=== PATIENT | male | born 1960 | race Caucasian/White ===

== ENCOUNTER 2019-04-04 12:42 | Outpatient (CLI) | payer BC ==
--- NOTE | 2019-04-04 14:17 | CT ---
EXAM: CT of the chest with contrast CT of the abdomen and pelvis with contrast HISTORY: Rectal cancer COMPARISON: None TECHNIQUE: 1. Multiple contiguous axial images were obtained in a CT the chest with contrast. Coronal and sagitt al reformats were performed. 2. Multiple contiguous axial images were obtained and a CT of the abdomen and pelvis with contrast. C oronal and sagittal reformats were performed. FINDINGS: CT CHEST: HEART: Normal in size without focal cardiac abnormality MEDIASTINUM: No hilar or mediastinal lymphadenopathy. LUNGS: No focal infiltrates, nodules, or masses. PLEURAL SPACE: No pneumothorax or pleural effusion. CHEST WALL SOFT TISSUES: Unremarkable CT ABDOMEN/PELVIS: ABDOMEN: LIVER: within normal limits. BILE DUCTS: Normal caliber. GALLBLADDER: No calcified gallstones. Normal caliber wall. PANCREAS: within normal limits. SPLEEN: within normal limits. ADRENALS: 1.6 cm left adrenal mass. Normal right adrenal gland. KIDNEYS: within normal limits. PELVIS: REPRODUCTIVE ORGANS: No pelvic masses. No pelvic adenopathy. URETERS: within normal limits. BLADDER: within normal limits. PERITONEUM: No ascites or free air, no fluid collection. BOWEL: There is thickening of the wall of the low rectum. Scattered diverticula are seen in the sigmo id colon. MESENTERY AND RETROPERITONEUM: No enlarged mesenteric or retroperitoneal lymph nodes. VESSELS: Atherosclerotic calcifications. ABDOMINAL WALL: within normal limits. OSSEOUS STRUCTURES: No suspicious osseous lesions identified. IMPRESSION: 1. Thickening of the wall of the lower rectum likely represents the patient's known rectal malignancy . 2. Nonspecific left adrenal nodule/mass
== END 2019-04-04 12:43 | disposition home or self-care (01) ==
LOC: BICCT 12:42
PROVIDERS: ATTEND Internal Medicine Gastroenterology
DX: C20 Malignant neoplasm of rectum (principal)
CPT/HCPCS: 71260; 74177

== ENCOUNTER 2019-04-14 07:45 | Outpatient (CLI) | payer BC ==
--- NOTE | 2019-04-14 11:14 | PET ---
Radionucleotide PET scan with CT attenuation correction HISTORY: Rectal cancer. Initial staging. FINDINGS: Physiologic uptake of radiotracer throughout the enteric system and along each urinary trac t. No abnormal uptake is evident within the liver. Maximum uptake associated with the mass at the lower rectum is 19.1 SUV. At the left adrenal gland, the small soft tissue density nodule is again seen. Maximum SUV 2.6 (maxim um SUV associated with the right adrenal gland is 2.4). On the nondiagnostic CT attenuation correction images, Hounsfield units associated with the left adrenal nodule average 20. There is prominent calcification throughout the arterial structures. Other findings are as detailed o n recent diagnostic CT exam. IMPRESSION: No metastatic disease of the liver. The left adrenal gland shows indeterminant characteristics for documentation as an adrenal adenoma. S cintigraphic evaluation is borderline for hypermetabolic activity, although not that different from the right adrenal gland, and Hounsfield unit measurements are borderline for adenoma density. Rectal carcinoma metastasis to the left adrenal gland would be uncommon. For immediate further diagnostic evaluation of the left adrenal nodule, dedicated CT exam, without an d with IV contrast to evaluate for enhancement characteristics, could be performed.
== END 2019-04-14 07:46 | disposition home or self-care (01) ==
LOC: PET 07:45
PROVIDERS: ATTEND Internal Medicine Hematology & Oncology
DX: C20 Malignant neoplasm of rectum (principal)
CPT/HCPCS: 78815; A9552

== ENCOUNTER 2019-04-20 09:47 | Outpatient (CLI) | payer BC ==
--- NOTE | 2019-04-20 11:47 | MRI ---
EXAM: MRI of the pelvis without and with contrast HISTORY: Rectal cancer staging COMPARISON: None TECHNIQUE: Multiplanar multisequence MR images were obtained of the pelvis without and with IV contra st. FINDINGS: There is a mass involving the rectum measuring 5.2 cm in length. The mass is heterogeneous in appeara nce and appears full-thickness. Abnormal high T2 signal is seen in the rectal wall along the left aspect of the rectum obscuring the muscle and serosa in this location. Invasion of the mesorectal fat: Yes ; Distance of mass from the anal verge: 1.1 cm Closest margin to the mesorectal fascia: less than 1 mm. This appears to abut the mesorectal fascia i n the left low pelvis. Involvement of adjacent organs: None Pelvic lymph nodes: 3-4 small right mesorectal fat lymph nodes measuring up to 7 mm in size. Osseous structures: No marrow signal abnormality Other visualized intrapelvic structures: Unremarkable IMPRESSION: Rectal cancer as above. Staging: T stage: TT IIIb N stage: N N Ib M stage: Mx
== END 2019-04-20 09:48 | disposition home or self-care (01) ==
LOC: TBSIIMAG 09:47
PROVIDERS: ATTEND Internal Medicine Hematology & Oncology
DX: C20 Malignant neoplasm of rectum (principal); D72.828 Other elevated white blood cell count
CPT/HCPCS: 72197

== ENCOUNTER 2019-07-18 11:35 | Outpatient (CLI) | payer BC ==
[2019-07-18 12:28] LABS: #Eosinphils 0.3 thou/uL (0.0-0.7); #Lymphocytes 1.1 thou/uL (1.20-3.40); #Monocytes 1.2 thou/uL (0.11-0.59); #Neutrophils 6.4 thou/uL (1.40-6.50); %Basophils 0.3 % (0.0-1.0); %Eosinophils 3.5 % (0.0-10.0); %Lymphocytes 11.7 % (21.0-51.0); %Monocytes 13.6 % (0.0-10.0); %Neutrophils 70.9 % (42.0-75.0); Hemoglobin 15.5 g/dL (14.0-18.0); Mean Corpuscular HGB CONC 34.2 g/dL (32.0-36.0); Mean Corpuscular Hemoglobin 36.3 pg (27.0-31.0); Mean Platelet Volume 7.7 fL (7.4-10.4); Platelet Count 271 thou/uL (130-400); RBC Distribution Width 13.5 % (11.5-14.5); Red Blood Cell (RBC) Count 4.27 mill/uL (4.70-6.10); White Blood Cell (WBC) Count 9.1 thou/uL (4.8-10.8)
[2019-07-18 12:42] LABS: Anion Gap 14 mmol/L (10-20); BUN (Urea Nitrogen) 15 mg/dL (8.4-25.7); Calc. Creatinine Clearance 0 mL/min (70-130); Calcium 9.9 mg/dL (7.8-10.44); Carbon Dioxide 21 mmol/L (22-29); Chloride 108 mmol/L (98-107); Estimated GFR-MDRD Greater than 90; Glucose 91 mg/dL (70-105); Sodium 139 mmol/L (136-145)
--- NOTE | 2019-07-20 14:28 | EKG ---
Test Reason : Blood Pressure : / mmHG Vent. Rate : 072 BPM Atrial Rate : 072 BPM P-R Int : 176 ms QRS Dur : 082 ms QT Int : 400 ms P-R-T Axes : 045 091 051 degrees QTc Int : 438 ms Normal sinus rhythm Rightward axis Cannot rule out Anterior infarct , age undetermined Abnormal ECG Confirmed by DIANE VICTOR ([id number]) on 07/20/2019 2:28:14 PM Referred By: CORY Confirmed By:DIANE VICTOR
== END 2019-07-18 11:36 | disposition home or self-care (01) ==
LOC: LABBT 11:35
PROVIDERS: ATTEND Specialist
DX: Z01.818 Encounter for other preprocedural examination (principal); C20 Malignant neoplasm of rectum
CPT/HCPCS: 36415; 80048; 80053; 82248; 82378; 83615; 84100; 84550; 85025; 93005; 93010

== ENCOUNTER 2019-07-19 07:51 | Day surgery (SDC) | payer BC ==
[2019-07-18 11:53] VITALS: BMI 28.4
[2019-07-19] MEDS ORDERED: Ketorolac Tromethamine 30 MG/ML VIAL ONE (08:19)
[2019-07-19] MEDS ORDERED: Acetaminophen 500 MG TAB ONE (08:19)
[2019-07-19] MEDS ORDERED: Bupivacaine 0.25% HCL 30 ML VIAL ONE (09:48)
[2019-07-19] MEDS ORDERED: Lidocaine 1% w/Epinephrine 1:100K 20 ML VIAL ONE (09:48)
[2019-07-19] MEDS ORDERED: Fentanyl 100 MCG/2 ML VIAL ONE (09:51)
[2019-07-19] MEDS ORDERED: Midazolam HCl 2 mg/2 ml Vial ONE (09:51)
--- NOTE | 2019-07-19 11:38 | RAD ---
Exam: Chest one view HISTORY:Status post Mediport placement Comparison: None FINDINGS: Cardiac silhouette: Normal Aorta: Unremarkable Pulmonary vessels: Normal Costophrenic angles: Clear Mediport: Right-sided Mediport catheter terminates over the cavoatrial junction. LUNGS: Patchy interstitial opacities. Pneumothorax: None. Limited evaluation of the right lung apex due to overlying oxygenation mass. Osseous abnormalities: None IMPRESSION: 1. Right-sided Mediport catheter terminating over the expected region of the caval atrial junction. N o pneumothorax.
[2019-07-19] MEDS ORDERED: Lidocaine 1% PF 5 ML VIAL ONE (12:26)
[2019-07-19] MEDS ORDERED: Succinylcholine Chloride 20 MG/ML 10 ml SYRINGE FS ONE (12:26)
[2019-07-19] MEDS ORDERED: PROPOFOL 200 MG/20 ML VIAL ONE (12:26)
[2019-07-19] MEDS ORDERED: Dexamethasone 20 MG/5 ML VIAL ONE (12:26)
[2019-07-19] MEDS ORDERED: Ondansetron PF 4 MG/2 ML Vial ONE (12:26)
[2019-07-19] MEDS ORDERED: PHENYLEPHRINE-NS 100 MCG/ML 10 ML SYRINGE ONE (12:26)
--- NOTE | 2019-07-20 11:58 | OP ---
DATE OF PROCEDURE: 07/19/2019 PREOPERATIVE DIAGNOSIS: Rectal cancer. POSTOPERATIVE DIAGNOSIS: Rectal cancer. PROCEDURES PERFORMED: Right subclavian standard size power compatible MediPort. ANESTHESIA: Total intravenous anesthesia with local using a mixture of 1% lidocaine with epinephrine as well as 0.25% Marcaine. INDICATIONS: The patient is a 58-year-old white male. He was recently diagnosed with rectal cancer. He was taken to the operating room at this time for MediPort placement for chemotherapy administration. DESCRIPTION OF OPERATION: Informed consent was obtained. The patient was taken to the operating room where total intravenous anesthesia was obtained with the patient in supine position. Periclavicular area was prepped with ChloraPrep and draped in sterile fashion. Local anesthetic was infiltrated and a large-gauge needle was passed under the clavicle in the subclavian vein. Guidewire was passed through the needle and fluoroscopically confirmed to enter the superior vena cava. Additional local anesthetic was infiltrated and transverse incision was created based on needle insertion site. A subcutaneous pocket was dissected inferiorly. Introducer dilator was passed over the guidewire under fluoroscopic guidance. The guidewire and dilator were removed, and the catheter was passed through the introducer. The tip of the catheter was positioned at the atriocaval junction and the catheter was trimmed to the appropriate length and secured to the locking hub of the MediPort. The port was then placed in the subcutaneous pocket where it was secured to the pectoral fascia with 2 interrupted sutures of 3-0 Prolene. The incision was then closed in layers with 3-0 and 4-0 Monocryl. Additional local anesthetic was infiltrated. The port was cannulated with a [place] needle and it aspirated blood freely and was flushed with heparinized saline. Dermabond was placed externally on the skin incision. There were no complications. Blood loss was negligible. The patient tolerated the procedure well and was taken to recovery room in stable condition. FINDINGS: I placed a right subclavian standard size port. The port size was selected secondary to his body habitus. Fluoroscopy was used throughout the procedure. There was no significant blood loss or any complications. The patient tolerated the procedure well, was taken to recovery room in stable condition. Job ID: [id number]
== END 2019-07-19 12:30 | disposition home or self-care (01) ==
LOC: SDC 07:51
PROVIDERS: ATTEND Specialist
PROC: 02HV33Z Insertion of Infusion Device into Superior Vena Cava, Percutaneous Approach (ICD-10-PCS; principal; 2019-07-19)
DX: C20 Malignant neoplasm of rectum (principal); I10 Essential (primary) hypertension; F10.20 Alcohol dependence, uncomplicated; F17.210 Nicotine dependence, cigarettes, uncomplicated; F32.9 Major depressive disorder, single episode, unspecified; G47.30 Sleep apnea, unspecified; Z88.2 Allergy status to sulfonamides; Z88.8 Allergy status to other drugs, medicaments and biological substances; Z79.899 Other long term (current) drug therapy
CPT/HCPCS: 71045; C1788; J0690; J1100; J1642; J1885; J2001; J2250; J2405; J2704; J3010; S0020

== ENCOUNTER 2021-02-25 08:05 | Outpatient (CLI) | payer BC ==
[2021-02-25] MEDS ORDERED: Iopamidol-370 76% 500 ML 1 ML ONE (10:53)
== END 2021-02-25 08:06 | disposition home or self-care (01) ==
LOC: BICCT 08:05
PROVIDERS: ATTEND Internal Medicine Hematology & Oncology
DX: C20 Malignant neoplasm of rectum (principal); D72.828 Other elevated white blood cell count; M85.88 Other specified disorders of bone density and structure, other site; Z98.890 Other specified postprocedural states; Z90.49 Acquired absence of other specified parts of digestive tract
CPT/HCPCS: 71260; 74177; Q9967

== ENCOUNTER 2021-05-16 11:45 | Outpatient (CLI) | payer BC | END 2021-05-16 11:46 | disposition home or self-care (01) | LOC: PET 11:45 | PROVIDERS: ATTEND Internal Medicine Hematology & Oncology | DX: C20 Malignant neoplasm of rectum (principal); I71.4 Abdominal aortic aneurysm, without rupture; Z98.890 Other specified postprocedural states | CPT/HCPCS: 78815; A9552 ==

== ENCOUNTER 2021-07-29 09:19 | Outpatient (CLI) | payer BC ==
[2021-07-29 10:59] LABS: #Basophils 0.1 10x3/uL (0.0-0.2); #Eosinphils 0.2 10x3/uL (0.0-0.5); #Neutrophils 5.8 10x3/uL (1.5-8.4); %Basophils 0.6 % (0.0-2.0); %Eosinophils 2.6 % (0.0-6.0); %Lymphocytes 15.9 % (18.0-47.0); %Monocytes 11.6 % (0.0-10.0); %Neutrophils 68.5 % (40.0-75.0); Hemoglobin 16.2 g/dL (13.5-17.5); Mean Corpuscular HGB CONC 35.1 g/dL (32.0-36.0); Mean Corpuscular Hemoglobin 33.8 pg (27.0-33.0); Mean Platelet Volume 11.6 fl (7.4-10.4); Platelet Count 233 10x3/uL (150-450); RBC Distribution Width 12.7 % (11.5-14.5); White Blood Cell (WBC) Count 8.5 10x3/uL (3.5-10.5)
[2021-07-29 11:25] LABS: Anion Gap 13 mmol/L (10-20); BUN (Urea Nitrogen) 19 mg/dL (8.4-25.7); Calc. Creatinine Clearance 0 mL/min (70-130); Calcium 9.5 mg/dL (7.8-10.44); Carbon Dioxide 21 mmol/L (22-29); Chloride 110 mmol/L (98-107); Glucose 87 mg/dL (70-105); Potassium 4.3 mmol/L (3.5-5.1); Sodium 140 mmol/L (136-145)
[2021-07-29 23:30] LABS: SARS-CoV-2 PCR by NAA Not Detected (NotDetected)
== END 2021-07-29 09:20 | disposition home or self-care (01) ==
LOC: LABBT 09:19
PROVIDERS: ATTEND Specialist
DX: Z01.818 Encounter for other preprocedural examination (principal); C20 Malignant neoplasm of rectum; E27.8 Other specified disorders of adrenal gland; Z20.822 Contact with and (suspected) exposure to COVID-19
CPT/HCPCS: 80048; 85025; 93005; 93010; U0003; U0005

== ENCOUNTER 2021-07-29 09:30 | Inpatient (IN) | payer BC ==
[2021-08-01] MEDS ORDERED: Ketorolac Tromethamine 30 MG/ML VIAL ONE (06:09)
[2021-08-01] MEDS ORDERED: ceFAZolin (BATCH) 2 GM/100 ML BAG ONE ×2 (06:09→07:58)
[2021-08-01] MEDS ORDERED: Acetaminophen 500 MG TAB ONE (06:09)
[2021-08-01] MEDS ORDERED: Lidocaine 1% MPF 2 ML VIAL ONE (06:10)
[2021-08-01] MEDS ORDERED: Phenylephrine 10 MG/ML VIAL ONE (06:44)
[2021-08-01] MEDS ORDERED: Ketamine 50 MG/ML (10ML VIAL) ONE (06:44)
[2021-08-01] MEDS ORDERED: Albumin 5% 250 ML ONE (06:44)
[2021-08-01] MEDS ORDERED: Fentanyl 250 MCG/5 ML VIAL ONE (06:44)
[2021-08-01] MEDS ORDERED: Lidocaine 1% (PF) 30 ML VIAL ONE (07:24)
[2021-08-01] MEDS ORDERED: SUGAMMADEX SODIUM 200 MG/2 ML VIAL ONE (07:24)
[2021-08-01] MEDS ORDERED: Midazolam HCl 2 mg/2 ml Vial ONE (07:43)
[2021-08-01] MEDS ORDERED: ePHEDrine 50 MG/ML VIAL ONE (08:30)
[2021-08-01] MEDS ORDERED: Rocuronium Bromide 10 MG/ML (10ML VIAL) ONE (08:30)
[2021-08-01] MEDS ORDERED: Ondansetron PF 4 MG/2 ML Vial ONE ×2 (08:30→11:54)
[2021-08-01] MEDS ORDERED: PROPOFOL 200 MG/20 ML VIAL ONE (08:30)
[2021-08-01] MEDS ORDERED: Dexamethasone 20 MG/5 ML VIAL ONE (08:30)
[2021-08-01] MEDS ORDERED: Vecuronium 10 MG VIAL ONE (08:30)
[2021-08-01] MEDS ORDERED: Lidocaine 1% PF 5 ML VIAL ONE (08:30)
[2021-08-01] MEDS ORDERED: Glycopyrrolate 0.2 MG/ML 5 ML SYRINGE ONE (08:30)
[2021-08-01] MEDS ORDERED: Lidocaine 1.5% w/Epi 1:200K 30 ML VIAL (Epid Use) ONE (08:30)
[2021-08-01] MEDS ORDERED: Nitroglycerin 50 MG/250 ML BOT 0 ML ONE (09:10)
[2021-08-01] MEDS ORDERED: Acetaminophen 325 MG TAB PO PRN (09:33)
[2021-08-01] MEDS ORDERED: Ondansetron PF 4 MG/2 ML Vial IVP PRN ×2 (09:45→11:32)
[2021-08-01] MEDS ORDERED: traMADol HCl 50 MG TAB PO PRN ×4 (09:45→15:00)
[2021-08-01] MEDS ORDERED: Naloxone HCl 0.4 mg/ml Vial IV PRN (09:45)
[2021-08-01] MEDS ORDERED: HYDROcodone/Acetaminophen 5/325 mg Tablet PO PRN (09:45)
[2021-08-01] MEDS ORDERED: diphenhydrAMINE 50 MG/ML VIAL IM PRN (09:45)
[2021-08-01] MEDS ORDERED: diphenhydrAMINE 50 MG/ML VIAL IVP PRN (09:45)
[2021-08-01] MEDS ORDERED: diphenhydrAMINE 25 MG CAP PO PRN (09:45)
[2021-08-01] MEDS ORDERED: Promethazine HCl 25 MG/ML VIAL IM PRN ×2 (09:45→11:32)
[2021-08-01] MEDS ORDERED: Naloxone HCl 0.4 mg/ml Vial IVP PRN (09:45)
[2021-08-01] MEDS ORDERED: Promethazine HCl 25 MG SUPP PR PRN (09:45)
[2021-08-01] MEDS ORDERED: Zolpidem Tartrate 5 MG TAB PO PRN (09:45)
[2021-08-01] MEDS ORDERED: Hydrocerin (Eucerin) Cream 120 gm Jar TOP PRN (09:45)
[2021-08-01] MEDS ORDERED: Bupivacaine 0.25% 10 ML VIAL EPIDURAL PRN (09:45)
[2021-08-01] MEDS ORDERED: Dexmedetomidine 200 MCG/2 ML VIAL ONE (11:01)
[2021-08-01] MEDS ORDERED: Bupivacaine 0.25% 10 ML VIAL ONE (11:02)
[2021-08-01] MEDS ORDERED: hydrALAZINE 20 MG/ML VIAL SLOW IVP PRN (11:32)
[2021-08-01] MEDS ORDERED: Fentanyl 100 MCG/2 ML VIAL ONE (11:45)
[2021-08-01] MEDS ORDERED: Bupivacaine 0.25% HCL 30 ML VIAL ONE (11:45)
[2021-08-01] MEDS ORDERED: Famotidine/PF 20 mg/2ml Vial SLOW IVP SCH (12:00)
[2021-08-01] MEDS: Ketorolac Tromethamine 30 MG/ML VIAL IVP SCH ×2 (12:00→18:32)
[2021-08-01] MEDS ORDERED: Citalopram 20 MG TAB PO SCH (12:00)
[2021-08-01] MEDS ORDERED: Famotidine 20 MG TAB PO SCH (12:00)
[2021-08-01] MEDS ORDERED: D5 1/2 NS w/20 mEq KCL 1,000 ML ONE (13:25)
[2021-08-01] MEDS: HYDROcodone/Acetaminophen 5/325 mg Tablet PO PRN (14:29)
[2021-08-01] MEDS: D5 1/2 NS w/20 mEq KCL 1,000 ML IV SCH ×2 (14:32→20:51)
[2021-08-01 14:35] VITALS: BMI 31.1
[2021-08-01] MEDS: ALPRAZolam 0.25 MG TAB PO PRN (15:48)
[2021-08-01] MEDS: Famotidine 20 MG TAB PO SCH (20:51)
[2021-08-01] MEDS: Famotidine/PF 20 mg/2ml Vial SLOW IVP SCH (20:51)
[2021-08-01] MEDS: fentaNYL Citrate/PF 500 MCG, Bupivacaine 0.75% 10 ML in Sodium Chloride 0.9% 80 ML EPIDURAL SCH (21:18)
[2021-08-02] MEDS: Ketorolac Tromethamine 30 MG/ML VIAL IVP SCH ×4 (00:11→17:32)
[2021-08-02] MEDS: D5 1/2 NS w/20 mEq KCL 1,000 ML IV SCH ×5 (05:22→21:27)
[2021-08-02 05:47] LABS: Anion Gap 11 mmol/L (10-20); BUN (Urea Nitrogen) 13 mg/dL (8.4-25.7); Calc. Creatinine Clearance 108 mL/min (70-130); Calcium 8.5 mg/dL (7.8-10.44); Carbon Dioxide 21 mmol/L (22-29); Chloride 110 mmol/L (98-107); Glucose 166 mg/dL (70-105); Potassium 4.1 mmol/L (3.5-5.1); Sodium 138 mmol/L (136-145)
[2021-08-02 05:52] LABS: Band 11 % (5-11); Hemoglobin 14.7 g/dL (14.0-18.0); Lymphocytes 6 % (21-51); MDiff Complete? YES; Mean Corpuscular HGB CONC 33.2 g/dL (32.0-36.0); Mean Platelet Volume 8.4 fL (7.4-10.4); Monocytes 4 % (0-10); Neutrophil 78 % (42-75); Platelet Count 190 thou/uL (130-400); RBC Distribution Width 11.6 % (11.5-14.5); Reactive Lymphocytes 1 % (0-10); White Blood Cell (WBC) Count 21.9 thou/uL (4.8-10.8)
[2021-08-02] MEDS ORDERED: HYDROcodone/Acetaminophen 7.5/325 mg Tablet PO PRN ×2 (08:57)
[2021-08-02] MEDS ORDERED: Enoxaparin Sodium 40 MG/0.4 ML SYRINGE SC SCH (09:00)
[2021-08-02] MEDS: Citalopram 20 MG TAB PO SCH (09:02)
[2021-08-02] MEDS: Lisinopril 20 MG TAB PO SCH (09:02)
[2021-08-02] MEDS: Famotidine 20 MG TAB PO SCH ×2 (09:02→20:33)
[2021-08-02] MEDS: Famotidine/PF 20 mg/2ml Vial SLOW IVP SCH ×2 (09:03→21:28)
[2021-08-02] MEDS: fentaNYL Citrate/PF 500 MCG, Bupivacaine 0.75% 10 ML in Sodium Chloride 0.9% 80 ML EPIDURAL SCH ×2 (09:04→20:34)
[2021-08-02] MEDS: ALPRAZolam 0.25 MG TAB PO PRN (11:35)
[2021-08-02] MEDS: HYDROcodone/Acetaminophen 5/325 mg Tablet PO PRN (20:33)
[2021-08-03] MEDS: Ketorolac Tromethamine 30 MG/ML VIAL IVP SCH ×4 (00:24→18:35)
[2021-08-03] MEDS: D5 1/2 NS w/20 mEq KCL 1,000 ML IV SCH ×4 (05:20→21:03)
[2021-08-03] MEDS: Citalopram 20 MG TAB PO SCH (09:25)
[2021-08-03] MEDS: Famotidine 20 MG TAB PO SCH ×2 (09:25→20:58)
[2021-08-03] MEDS: Lisinopril 20 MG TAB PO SCH (09:25)
[2021-08-03] MEDS: Famotidine/PF 20 mg/2ml Vial SLOW IVP SCH ×2 (09:27→21:03)
[2021-08-03] MEDS: ALPRAZolam 0.25 MG TAB PO PRN (18:39)
[2021-08-03] MEDS: Enoxaparin Sodium 40 MG/0.4 ML SYRINGE SC SCH (20:58)
[2021-08-04] MEDS: Ketorolac Tromethamine 30 MG/ML VIAL IVP SCH ×3 (00:01→12:16)
[2021-08-04] MEDS: D5 1/2 NS w/20 mEq KCL 1,000 ML IV SCH ×3 (05:29→18:19)
[2021-08-04] MEDS: Citalopram 20 MG TAB PO SCH (09:35)
[2021-08-04] MEDS: Famotidine 20 MG TAB PO SCH ×2 (09:35→20:43)
[2021-08-04] MEDS: Lisinopril 20 MG TAB PO SCH (09:36)
[2021-08-04] MEDS: Famotidine/PF 20 mg/2ml Vial SLOW IVP SCH (09:36)
[2021-08-04] MEDS ORDERED: Polyethylene Glycol 3350 17 GM Packet PO SCH (17:15)
[2021-08-04] MEDS: Enoxaparin Sodium 40 MG/0.4 ML SYRINGE SC SCH (20:43)
[2021-08-05] MEDS ORDERED: Polyethylene Glycol 3350 17 GM Packet PO SCH (09:00)
[2021-08-05 09:32] LABS: Mean Corpuscular HGB CONC 33.8 g/dL (32.0-36.0); Mean Corpuscular Hemoglobin 34.8 pg (27.0-31.0); Mean Platelet Volume 8.5 fL (7.4-10.4); Platelet Count 208 thou/uL (130-400); RBC Distribution Width 11.3 % (11.5-14.5); White Blood Cell (WBC) Count 11.2 thou/uL (4.8-10.8)
[2021-08-05] MEDS: Lisinopril 20 MG TAB PO SCH (09:42)
[2021-08-05] MEDS: Famotidine 20 MG TAB PO SCH (09:42)
[2021-08-05] MEDS: Citalopram 20 MG TAB PO SCH (09:42)
[2021-08-05 09:56] LABS: Anion Gap 13 mmol/L (10-20); BUN (Urea Nitrogen) 15 mg/dL (8.4-25.7); Calc. Creatinine Clearance 113 mL/min (70-130); Calcium 9.1 mg/dL (7.8-10.44); Carbon Dioxide 24 mmol/L (22-29); Chloride 106 mmol/L (98-107); Glucose 96 mg/dL (70-105); Potassium 3.9 mmol/L (3.5-5.1); Sodium 139 mmol/L (136-145)
[2021-08-05 10:13] LABS: Lymphocytes 10 % (21-51); MDiff Complete? YES; Monocytes 13 % (0-10); Neutrophil 74 % (42-75); Platelet Morphology Comment Appears Adequate; RBC Morphology Normal; Reactive Lymphocytes 3 % (0-10)
[2021-08-05 16:10] VITALS: BP 136/90; TEMP 97.9
== END 2021-08-05 18:05 | disposition home or self-care (01) | DRG 614 ==
LOC: SURG A 08-01 05:54
PROVIDERS: ADMIT Specialist; ATTEND Specialist
PROC: 0GT20ZZ Resection of Left Adrenal Gland, Open Approach (ICD-10-PCS; principal; 2021-08-01)
DX: C79.72 Secondary malignant neoplasm of left adrenal gland (principal); C20 Malignant neoplasm of rectum; K91.89 Other postprocedural complications and disorders of digestive system; K56.7 Ileus, unspecified; D72.829 Elevated white blood cell count, unspecified; R73.9 Hyperglycemia, unspecified
CPT/HCPCS: 36415; 80048; 82378; 85025; 86850; 86900; 86901; 88307; 88341; 88342; C1713; C1889; J0690; J1100; J1642; J1650; J1885; J2001; J2250; J2370; J2405; J2704; J3010; J3480; J3490; P9045; S0020

== ENCOUNTER 2021-09-19 08:00 | Outpatient (CLI) | payer BC | END 2021-09-19 08:01 | disposition home or self-care (01) | LOC: PET 08:00 | PROVIDERS: ATTEND Internal Medicine Hematology & Oncology | DX: C20 Malignant neoplasm of rectum (principal) | CPT/HCPCS: 78815; A9552 ==

== ENCOUNTER 2022-04-01 08:08 | Outpatient (CLI) | payer BC ==
[2022-04-01] MEDS ORDERED: Iopamidol 370 76% 100 ML VIAL ONE (13:20)
== END 2022-04-01 08:09 | disposition home or self-care (01) ==
LOC: CT 08:08
PROVIDERS: ATTEND Internal Medicine Hematology & Oncology
DX: C20 Malignant neoplasm of rectum (principal); D72.828 Other elevated white blood cell count; I70.0 Atherosclerosis of aorta; I25.10 Atherosclerotic heart disease of native coronary artery without angina pectoris
CPT/HCPCS: 71260; 74177; 82565; Q9967

== ENCOUNTER 2023-06-26 09:06 | Outpatient (CLI) | payer BC | END 2023-06-26 09:07 | disposition home or self-care (01) | LOC: BICRAD 09:06 | PROVIDERS: ATTEND Nurse Practitioner Family | DX: R10.9 Unspecified abdominal pain (principal) | CPT/HCPCS: 74018 ==

== ENCOUNTER 2023-12-25 08:00 | Outpatient (CLI) | payer BC | END 2023-12-25 08:01 | disposition home or self-care (01) | LOC: PET 08:00 | PROVIDERS: ATTEND Internal Medicine Hematology & Oncology | DX: C20 Malignant neoplasm of rectum (principal); R97.0 Elevated carcinoembryonic antigen [CEA]; I71.43 Infrarenal abdominal aortic aneurysm, without rupture; R91.1 Solitary pulmonary nodule; R59.0 Localized enlarged lymph nodes; Z98.890 Other specified postprocedural states | CPT/HCPCS: 78815; A9552 ==

== ENCOUNTER 2024-02-01 23:29 | Inpatient (IN) | payer BC ==
[2024-02-02] MEDS ORDERED: Acetaminophen 650 MG Suppository PR PRN (00:04)
[2024-02-02] MEDS: Acetaminophen 325 MG TAB PO SCH (01:11)
[2024-02-02] MEDS: Calcium Carbonate 500 MG ChewTAB PO PRN (01:12)
[2024-02-02] MEDS: QUEtiapine 25 MG TAB PO SCH (01:12)
[2024-02-02 01:16] VITALS: BMI 26.6
[2024-02-02 01:16] LABS: Hematocrit 36.4 % (42.0-52.0); Hemoglobin 13.6 g/dL (14.0-18.0); Mean Corpuscular HGB CONC 37.4 g/dL (32.0-36.0); Mean Corpuscular Hemoglobin 34.1 pg (27.0-31.0); Mean Corpuscular Volume 91.2 fL (78.0-98.0); Mean Platelet Volume 8.8 fL (7.4-10.4); Platelet Count 321 10x3/uL (130-400); RBC Distribution Width 11.7 % (11.5-14.5); Red Blood Cell (RBC) Count 3.99 mill/uL (4.70-6.10)
[2024-02-02 01:35] LABS: ALT (SGPT) 17 U/L (8-55); AST (SGOT) 14 U/L (5-34); Albumin 2.2 g/dL (3.4-4.8); Alkaline Phosphatase 73 U/L (40-110); Anion Gap 15 mmol/L (10-20); BUN (Urea Nitrogen) 23 mg/dL (8.4-25.7); Calc. Creatinine Clearance 97 mL/min (70-130); Calcium 8.1 mg/dL (7.8-10.44); Carbon Dioxide 23 mmol/L (23-31); Chloride 82 mmol/L (98-107); Estimated GFR 99; Globulin 2.6 g/dL (2.4-3.5); Glucose 125 mg/dL (80-115); Potassium 2.7 mmol/L (3.5-5.1); Protein, Total 4.8 g/dL (5.8-8.1); Sodium 117 mmol/L (136-145)
[2024-02-02 01:43] LABS: Anisocytosis SLIGHT = 6-15 cells HPF (0-5); Band 20 % (5-11); Dohle Bodies SLIGHT; Lymphocytes 2 % (21-51); Metamyelocyte 1 % (0-0); Monocytes 19 % (0-10); Myelocyte 2 % (0-0); Neutrophil 56 % (42-75); Platelet Adequacy Comment Platelets Normal; Polychromasia SLIGHT = 2-3 cells HPF (0-2); Toxic Granulation MODERATE
[2024-02-02] MEDS: Potassium Chloride 20 MEQ TAB PO SCH ×2 (03:38→09:57)
[2024-02-02] MEDS: FLU (Fluarix Triv) TS24-25(6MOS UP)/PF 45 MCG/0.5 ML Syringe IM ONE (03:44)
[2024-02-02] MEDS ORDERED: Potassium Chloride 20 MEQ TAB PO SCH (08:00)
[2024-02-02 09:09] LABS: Sodium 119 mmol/L (136-145)
[2024-02-02 09:43] LABS: Albumin 2.3 g/dL (3.4-4.8); Anion Gap 13 mmol/L (10-20); BUN (Urea Nitrogen) 19 mg/dL (8.4-25.7); BUN/Creatinine Ratio 24.68; Calc. Creatinine Clearance 105 mL/min (70-130); Calcium 8.5 mg/dL (7.8-10.44); Carbon Dioxide 23 mmol/L (23-31); Chloride 85 mmol/L (98-107); Estimated GFR 101; Glucose 128 mg/dL (80-115); Magnesium 2.2 mg/dL (1.6-2.6); Phosphorus 2.2 mg/dL (2.3-4.7); Potassium 2.6 mmol/L (3.5-5.1); Sodium 118 mmol/L (136-145)
[2024-02-02] MEDS: Pantoprazole DR 40 MG TAB PO SCH (09:57)
[2024-02-02] MEDS: Famotidine 20 MG TAB PO SCH (09:57)
[2024-02-02] MEDS: Potassium Chloride 20 MEQ in Premix 1 BAG IVPB SCH (09:57)
[2024-02-02] MEDS: Lisinopril 20 MG TAB PO SCH (09:57)
[2024-02-02] MEDS: BuPROPion XL 150 MG ER.TAB PO SCH (09:57)
[2024-02-02] MEDS: Famotidine/PF 20 mg/2ml Vial SLOW IVP SCH (09:58)
[2024-02-02] MEDS: Albumin 25% 25 GM (100 mL) BOT IVPB SCH (12:15)
[2024-02-02] MEDS: Potassium Phosphate 30 MMOL in Sodium Chloride 0.9% 250 ML 250 ML IVPB SCH (13:31)
[2024-02-02 16:33] LABS: Anion Gap 12 mmol/L (10-20); BUN (Urea Nitrogen) 17 mg/dL (8.4-25.7); Calc. Creatinine Clearance 109 mL/min (70-130); Calcium 8.2 mg/dL (7.8-10.44); Carbon Dioxide 22 mmol/L (23-31); Chloride 88 mmol/L (98-107); Estimated GFR 102; Glucose 120 mg/dL (80-115); Potassium 3.5 mmol/L (3.5-5.1); Sodium 118 mmol/L (136-145)
[2024-02-02] MEDS: Sodium Chloride 1 GM TAB PO SCH (20:05)
[2024-02-02 21:44] LABS: Albumin 3.2 g/dL (3.4-4.8); Anion Gap 14 mmol/L (10-20); BUN (Urea Nitrogen) 16 mg/dL (8.4-25.7); BUN/Creatinine Ratio 19.75; Calc. Creatinine Clearance 100 mL/min (70-130); Calcium 8.6 mg/dL (7.8-10.44); Carbon Dioxide 19 mmol/L (23-31); Chloride 91 mmol/L (98-107); Estimated GFR 100; Glucose 118 mg/dL (80-115); Phosphorus 2.2 mg/dL (2.3-4.7); Potassium 3.8 mmol/L (3.5-5.1); Sodium 120 mmol/L (136-145)
[2024-02-03 04:51] LABS: Hematocrit 35.7 % (42.0-52.0); Hemoglobin 13.1 g/dL (14.0-18.0); Mean Corpuscular HGB CONC 36.7 g/dL (32.0-36.0); Mean Corpuscular Hemoglobin 33.7 pg (27.0-31.0); Mean Corpuscular Volume 91.8 fL (78.0-98.0); Mean Platelet Volume 8.9 fL (7.4-10.4); Platelet Count 276 10x3/uL (130-400); RBC Distribution Width 12.4 % (11.5-14.5); Red Blood Cell (RBC) Count 3.89 mill/uL (4.70-6.10)
[2024-02-03 05:07] LABS: Anion Gap 14 mmol/L (10-20); BUN (Urea Nitrogen) 18 mg/dL (8.4-25.7); Calc. Creatinine Clearance 79 mL/min (70-130); Calcium 9.1 mg/dL (7.8-10.44); Carbon Dioxide 21 mmol/L (23-31); Chloride 91 mmol/L (98-107); Estimated GFR 83; Glucose 145 mg/dL (80-115); Potassium 3.7 mmol/L (3.5-5.1); Sodium 122 mmol/L (136-145)
[2024-02-03 05:46] LABS: Anisocytosis SLIGHT = 6-15 cells HPF (0-5); Band 20 % (5-11); Burr Cells SLIGHT = 2-5 cells HPF (0-1); Dohle Bodies SLIGHT; Large Platelets 0.9 % (0-5); Lymphocytes 6 % (21-51); Metamyelocyte 5 % (0-0); Monocytes 14 % (0-10); Neutrophil 56 % (42-75); Platelet Adequacy Comment Platelets Normal; Polychromasia SLIGHT = 2-3 cells HPF (0-2); Toxic Granulation SLIGHT
[2024-02-03 07:10] LABS: Magnesium 2.5 mg/dL (1.6-2.6); Phosphorus 1.5 mg/dL (2.3-4.7)
[2024-02-03] MEDS: NS 0.9% w/ 40 MEQ KCL 1,000 ML IV SCH (09:04)
[2024-02-03] MEDS: Sodium Chloride 1 GM TAB PO SCH (09:04)
[2024-02-03] MEDS: Potassium Phosphate 30 MMOL in Sodium Chloride 0.9% 250 ML 250 ML IVPB SCH (09:04)
[2024-02-03 11:31] LABS: Anion Gap 15 mmol/L (10-20); BUN (Urea Nitrogen) 17 mg/dL (8.4-25.7); Calc. Creatinine Clearance 94 mL/min (70-130); Carbon Dioxide 22 mmol/L (23-31); Chloride 91 mmol/L (98-107); Estimated GFR 98; Glucose 112 mg/dL (80-115); Potassium 3.6 mmol/L (3.5-5.1); Sodium 124 mmol/L (136-145)
[2024-02-03] MEDS ORDERED: Electrolyte Replacement Protocol 1 EACH FS SCH (11:52)
[2024-02-03] MEDS: Loperamide HCl 2 MG CAP PO SCH ×2 (12:16→20:25)
[2024-02-03 16:36] LABS: Sodium 125 mmol/L (136-145)
[2024-02-03] MEDS: QUEtiapine 25 MG TAB PO SCH (20:25)
[2024-02-04 01:10] LABS: Sodium 126 mmol/L (136-145)
[2024-02-04 05:28] LABS: Hematocrit 36.6 % (42.0-52.0); Hemoglobin 13.1 g/dL (14.0-18.0); Mean Corpuscular HGB CONC 35.8 g/dL (32.0-36.0); Mean Corpuscular Hemoglobin 33.5 pg (27.0-31.0); Mean Corpuscular Volume 93.6 fL (78.0-98.0); Mean Platelet Volume 8.9 fL (7.4-10.4); Platelet Count 227 10x3/uL (130-400); RBC Distribution Width 13.1 % (11.5-14.5); Red Blood Cell (RBC) Count 3.91 mill/uL (4.70-6.10)
[2024-02-04 05:39] LABS: Anion Gap 12 mmol/L (10-20); BUN (Urea Nitrogen) 14 mg/dL (8.4-25.7); Calc. Creatinine Clearance 102 mL/min (70-130); Calcium 8.2 mg/dL (7.8-10.44); Carbon Dioxide 17 mmol/L (23-31); Chloride 102 mmol/L (98-107); Estimated GFR 100; Glucose 108 mg/dL (80-115); Potassium 4.4 mmol/L (3.5-5.1); Sodium 127 mmol/L (136-145)
[2024-02-04 05:47] LABS: Phosphorus 1.5 mg/dL (2.3-4.7)
[2024-02-04 06:31] LABS: Anisocytosis SLIGHT = 6-15 cells HPF (0-5); Band 20 % (5-11); Burr Cells SLIGHT = 2-5 cells HPF (0-1); Dohle Bodies SLIGHT; Lymphocytes 8 % (21-51); Macrocytosis SLIGHT = 6-15 cells HPF (0-5); Metamyelocyte 6 % (0-0); Monocytes 17 % (0-10); Myelocyte 1 % (0-0); Neutrophil 48 % (42-75); Platelet Adequacy Comment Platelets Normal; Poikilocytosis SLIGHT = 6-15 cells HPF (0-5); Polychromasia SLIGHT = 2-3 cells HPF (0-2); Reactive Lymphocytes 1 % (0-10); Toxic Granulation MODERATE; Vacuoles SLIGHT
[2024-02-04] MEDS ORDERED: PHOS-NAK 1 PKT PACK PO SCH (08:00)
[2024-02-04 08:34] LABS: Sodium 127 mmol/L (136-145)
[2024-02-04] MEDS: Magnesium 2 GM/50 ML(in water) 2 GM in Premix 1 BAG IVPB SCH (09:41)
[2024-02-04] MEDS: Sodium Phosphate 30 MMOL in Sodium Chloride 0.9% 250 ML 250 ML IVPB SCH (09:41)
[2024-02-04] MEDS: Sodium Bicarbonate Tab 325 MG TAB PO SCH (09:42)
[2024-02-04] MEDS: Enoxaparin 40 MG (0.4 mL) SYRINGE SC SCH (09:42)
[2024-02-04] MEDS: Ondansetron ODT 4 MG TAB PO PRN (15:58)
[2024-02-04] MEDS: QUEtiapine 25 MG TAB PO SCH (20:07)
[2024-02-05 05:25] LABS: Hematocrit 43.3 % (42.0-52.0); Hemoglobin 15.3 g/dL (14.0-18.0); Mean Corpuscular HGB CONC 35.3 g/dL (32.0-36.0); Mean Corpuscular Hemoglobin 33.1 pg (27.0-31.0); Mean Corpuscular Volume 93.7 fL (78.0-98.0); Mean Platelet Volume 9.6 fL (7.4-10.4); Platelet Count 272 10x3/uL (130-400); RBC Distribution Width 13.6 % (11.5-14.5); Red Blood Cell (RBC) Count 4.62 mill/uL (4.70-6.10)
[2024-02-05 05:40] LABS: Anion Gap 22 mmol/L (10-20); BUN (Urea Nitrogen) 24 mg/dL (8.4-25.7); Calc. Creatinine Clearance 92 mL/min (70-130); Calcium 8.4 mg/dL (7.8-10.44); Carbon Dioxide 16 mmol/L (23-31); Chloride 97 mmol/L (98-107); Estimated GFR 97; Glucose 117 mg/dL (80-115); Potassium 3.8 mmol/L (3.5-5.1); Sodium 131 mmol/L (136-145)
[2024-02-05 06:24] LABS: Band 45 % (5-11); Burr Cells MODERATE= 6-15 cells HPF (0-1); Large Platelets 1.7 % (0-5); Lymphocytes 7 % (21-51); Monocytes 21 % (0-10); Neutrophil 25 % (42-75); Nucleated RBC (Manual Ct) 1 % (0); Plasma Cells 1 % (0-0); Platelet Adequacy Comment Platelets Normal; Poikilocytosis MODERATE=16-30 cells HPF (0-5); Polychromasia SLIGHT = 2-3 cells HPF (0-2); Reactive Lymphocytes 1 % (0-10); Smudge Cells 5.2 %; Toxic Granulation SLIGHT
[2024-02-05 08:10] LABS: Adenovirus F 40-41 Not Detected (Not Detected); Astrovirus Not Detected (Not Detected); C. difficile toxin A+B DETECTED (Not Detected); Campylobacter by PCR Not Detected (Not Detected); Cryptosporidium Not Detected (Not Detected); Cyclospora cayetanensis Not Detected (Not Detected); Entamoeba histolytica Not Detected (Not Detected); Enteroaggregative E. coli Not Detected (Not Detected); Enteropathogenic E. coli Not Detected (Not Detected); Enterotoxigenic E. coli Not Detected (Not Detected); Giardia lamblia Not Detected (Not Detected); Norovirus GI-GII Not Detected (Not Detected); Plesiomonas shigelloides Not Detected (Not Detected); Rotavirus A Not Detected (Not Detected); Salmonella Not Detected (Not Detected); Sapovirus Not Detected (Not Detected); Shiga-toxin-producing E coli Not Detected (Not Detected); Shigella/Enteroinvasive E coli Not Detected (Not Detected); Vibrio Not Detected (Not Detected); Vibrio cholerae Not Detected (Not Detected); Yersinia enterocolitica Not Detected (Not Detected)
[2024-02-05] MEDS: Vancomycin HCl 125 MG Capsule PO SCH (09:24)
[2024-02-05 09:44] LABS: Magnesium 2.6 mg/dL (1.6-2.6); Phosphorus 2.6 mg/dL (2.3-4.7)
[2024-02-05 10:59] VITALS: BMI 26.9
[2024-02-05] MEDS ORDERED: Melatonin 3 MG TAB PO SCH (11:00)
[2024-02-05] MEDS: metroNIDAZOLE 500 MG in Premix 1 BAG IVPB SCH ×2 (12:34→17:43)
[2024-02-05] MEDS ORDERED: Iopamidol-370 76% 500 ML MDV (1 ML CHARGE) ONE (14:18)
[2024-02-05] MEDS: Sodium Bicarbonate Tab 325 MG TAB PO SCH (14:20)
[2024-02-05] MEDS: Sodium Bicarbonate 150 MEQ in Sodium Chloride 0.45% 1,000 ML IV SCH (14:21)
[2024-02-05] MEDS: Melatonin 3 MG TAB PO SCH ×2 (17:18→20:19)
[2024-02-05 18:24] LABS: Albumin 2.3 g/dL (3.4-4.8); Anion Gap 20 mmol/L (10-20); BUN (Urea Nitrogen) 37 mg/dL (8.4-25.7); BUN/Creatinine Ratio 41.11; Calc. Creatinine Clearance 91 mL/min (70-130); Calcium 8.4 mg/dL (7.8-10.44); Carbon Dioxide 19 mmol/L (23-31); Chloride 96 mmol/L (98-107); Estimated GFR 97; Glucose 132 mg/dL (80-115); Potassium 3.5 mmol/L (3.5-5.1); Sodium 131 mmol/L (136-145)
[2024-02-05] MEDS: Potassium Chloride 20 MEQ TAB PO SCH (20:20)
[2024-02-06] MEDS: Prochlorperazine Edisylate 10 MG in Sodium Chloride 0.9% 50 ML IVPB SCH (02:41)
[2024-02-06 04:40] LABS: Phosphorus 3.4 mg/dL (2.3-4.7)
[2024-02-06 04:44] LABS: Albumin 2.3 g/dL (3.4-4.8); Anion Gap 19 mmol/L (10-20); BUN (Urea Nitrogen) 43 mg/dL (8.4-25.7); BUN/Creatinine Ratio 43.88; Calc. Creatinine Clearance 84 mL/min (70-130); Calcium 8.7 mg/dL (7.8-10.44); Carbon Dioxide 20 mmol/L (23-31); Chloride 97 mmol/L (98-107); Estimated GFR 87; Glucose 138 mg/dL (80-115); Magnesium 2.5 mg/dL (1.6-2.6); Phosphorus 3.4 mg/dL (2.3-4.7); Potassium 3.4 mmol/L (3.5-5.1); Sodium 133 mmol/L (136-145)
[2024-02-06 05:21] LABS: Hematocrit 41.6 % (42.0-52.0); Hemoglobin 15.1 g/dL (14.0-18.0); Mean Corpuscular HGB CONC 36.3 g/dL (32.0-36.0); Mean Corpuscular Hemoglobin 33.3 pg (27.0-31.0); Mean Corpuscular Volume 91.8 fL (78.0-98.0); Mean Platelet Volume 10.2 fL (7.4-10.4); Platelet Count 225 10x3/uL (130-400); RBC Distribution Width 13.5 % (11.5-14.5); Red Blood Cell (RBC) Count 4.53 mill/uL (4.70-6.10)
[2024-02-06 06:21] LABS: Anisocytosis SLIGHT = 6-15 cells HPF (0-5); Band 18 % (5-11); Large Platelets 2.5 % (0-5); Lymphocytes 1 % (21-51); Macrocytosis SLIGHT = 6-15 cells HPF (0-5); Metamyelocyte 10 % (0-0); Monocytes 38 % (0-10); Myelocyte 3 % (0-0); Neutrophil 30 % (42-75); Nucleated RBC (Manual Ct) 1 % (0); Platelet Adequacy Comment Platelets Normal; Polychromasia SLIGHT = 2-3 cells HPF (0-2); Smudge Cells 9.2 %
[2024-02-06] MEDS ORDERED: Potassium Chloride 20 MEQ TAB PO SCH (08:00)
[2024-02-06] MEDS: Potassium Chloride 20 MEQ TAB PO SCH (09:56)
[2024-02-06] MEDS: Sodium Bicarbonate 150 MEQ in Sodium Chloride 0.45% 1,000 ML IV SCH ×2 (09:57→12:31)
[2024-02-06] MEDS: Ondansetron PF 4 MG/2 ML Vial IVP PRN (12:30)
[2024-02-07 04:52] LABS: Hematocrit 39.1 % (42.0-52.0); Hemoglobin 14.2 g/dL (14.0-18.0); Mean Corpuscular HGB CONC 36.3 g/dL (32.0-36.0); Mean Corpuscular Hemoglobin 33.6 pg (27.0-31.0); Mean Corpuscular Volume 92.7 fL (78.0-98.0); Mean Platelet Volume 11.2 fL (7.4-10.4); Platelet Count 227 10x3/uL (130-400); RBC Distribution Width 13.9 % (11.5-14.5); Red Blood Cell (RBC) Count 4.22 mill/uL (4.70-6.10)
[2024-02-07 05:24] LABS: Anion Gap 22 mmol/L (10-20); BUN (Urea Nitrogen) 48 mg/dL (8.4-25.7); BUN/Creatinine Ratio 44.44; Calc. Creatinine Clearance 76 mL/min (70-130); Calcium 8.3 mg/dL (7.8-10.44); Carbon Dioxide 22 mmol/L (23-31); Chloride 96 mmol/L (98-107); Estimated GFR 78; Glucose 96 mg/dL (80-115); Phosphorus 3.5 mg/dL (2.3-4.7); Potassium 3.1 mmol/L (3.5-5.1); Sodium 137 mmol/L (136-145)
[2024-02-07 05:43] LABS: Band 38 % (5-11); Burr Cells SLIGHT = 2-5 cells HPF (0-1); Large Platelets 4.3 % (0-5); Lymphocytes 3 % (21-51); Metamyelocyte 2 % (0-0); Monocytes 14 % (0-10); Neutrophil 44 % (42-75); Platelet Adequacy Comment Platelets Normal; Poikilocytosis MODERATE=16-30 cells HPF (0-5); Polychromasia SLIGHT = 2-3 cells HPF (0-2); Smudge Cells 7.8 %
[2024-02-07] MEDS: Potassium Chloride 20 MEQ TAB PO SCH ×2 (06:10→13:21)
[2024-02-07] MEDS: Albumin 25% 25 GM (100 mL) BOT IVPB SCH ×2 (10:18→16:32)
[2024-02-08 06:08] LABS: Anion Gap 18 mmol/L (10-20); BUN (Urea Nitrogen) 30 mg/dL (8.4-25.7); Calc. Creatinine Clearance 103 mL/min (70-130); Calcium 8.2 mg/dL (7.8-10.44); Carbon Dioxide 33 mmol/L (23-31); Chloride 96 mmol/L (98-107); Estimated GFR 100; Glucose 90 mg/dL (80-115); Magnesium 2.7 mg/dL (1.6-2.6); Potassium 2.5 mmol/L (3.5-5.1); Sodium 144 mmol/L (136-145)
[2024-02-08 06:15] LABS: CRP,High Sensitivity (Inhouse) 20.04 mg/dL (< or = 0.5)
[2024-02-08 06:21] LABS: Hematocrit 31.1 % (42.0-52.0); Hemoglobin 10.9 g/dL (14.0-18.0); Mean Corpuscular Hemoglobin 33.5 pg (27.0-31.0); Mean Corpuscular Volume 95.7 fL (78.0-98.0); Platelet Count 193 10x3/uL (130-400); RBC Distribution Width 14.2 % (11.5-14.5); Red Blood Cell (RBC) Count 3.25 mill/uL (4.70-6.10)
[2024-02-08] MEDS ORDERED: Potassium Chloride 40 MEQ in Premix 1 BAG IVPB SCH (06:30)
[2024-02-08 07:24] LABS: Anisocytosis SLIGHT = 6-15 cells HPF (0-5); Band 28 % (5-11); Large Platelets 2.6 % (0-5); Lymphocytes 3 % (21-51); Macrocytosis SLIGHT = 6-15 cells HPF (0-5); Monocytes 10 % (0-10); Myelocyte 3 % (0-0); Neutrophil 56 % (42-75); Platelet Adequacy Comment Platelets Normal; Polychromasia SLIGHT = 2-3 cells HPF (0-2); Smudge Cells 5.1 %; Target Cells SLIGHT = 2-5 cells HPF (0-1)
[2024-02-08] MEDS: Potassium Chloride 20 MEQ in Premix 1 BAG IVPB SCH ×2 (07:55→08:51)
[2024-02-08 08:39] LABS: Phosphorus 1.8 mg/dL (2.3-4.7)
[2024-02-08] MEDS ORDERED: PHOS-NAK 1 PKT PACK PO SCH (11:00)
[2024-02-08] MEDS: Potassium Phosphate 30 MMOL in Sodium Chloride 0.9% 250 ML 250 ML IVPB SCH (11:55)
[2024-02-08 14:33] LABS: Potassium 2.9 mmol/L (3.5-5.1)
[2024-02-08] MEDS: Potassium Chloride 20 MEQ TAB PO SCH (16:57)
[2024-02-09 06:00] LABS: Hematocrit 36.2 % (42.0-52.0); Hemoglobin 12.5 g/dL (14.0-18.0); Mean Corpuscular HGB CONC 34.5 g/dL (32.0-36.0); Mean Corpuscular Hemoglobin 33.1 pg (27.0-31.0); Mean Corpuscular Volume 95.8 fL (78.0-98.0); Mean Platelet Volume 11.4 fL (7.4-10.4); Platelet Count 192 10x3/uL (130-400); RBC Distribution Width 14.9 % (11.5-14.5); Red Blood Cell (RBC) Count 3.78 mill/uL (4.70-6.10)
[2024-02-09 06:39] LABS: Band 30 % (5-11); Eosinophils 1 % (0-10); Large Platelets 1.9 % (0-5); Lymphocytes 3 % (21-51); Monocytes 4 % (0-10); Neutrophil 63 % (42-75); Nucleated RBC (Manual Ct) 1 % (0); Platelet Adequacy Comment Platelets Normal; RBC Morphology Within Normal Limits; Toxic Granulation SLIGHT
[2024-02-09 07:36] LABS: Albumin 3.1 g/dL (3.4-4.8); Anion Gap 16 mmol/L (10-20); BUN (Urea Nitrogen) 25 mg/dL (8.4-25.7); BUN/Creatinine Ratio 28.74; Calc. Creatinine Clearance 94 mL/min (70-130); Calcium 8.3 mg/dL (7.8-10.44); Carbon Dioxide 31 mmol/L (23-31); Chloride 96 mmol/L (98-107); Estimated GFR 98; Glucose 106 mg/dL (80-115); Magnesium 2.6 mg/dL (1.6-2.6); Phosphorus 2.6 mg/dL (2.3-4.7); Sodium 140 mmol/L (136-145)
[2024-02-09] MEDS ORDERED: Potassium Chloride 20 MEQ TAB PO SCH (09:00)
[2024-02-09] MEDS: Potassium Chloride 20 MEQ in Premix 1 BAG IVPB SCH (09:47)
[2024-02-09] MEDS ORDERED: Electrolyte Replacement Protocol FS PRN (12:00)
[2024-02-09] MEDS: Morphine 2 MG/ML VIAL SLOW IVP PRN (15:12)
[2024-02-10 04:51] LABS: Hemoglobin 14.6 g/dL (14.0-18.0); Mean Corpuscular Volume 97.1 fL (78.0-98.0); Mean Platelet Volume 11.4 fL (7.4-10.4); Platelet Count 224 10x3/uL (130-400); RBC Distribution Width 15.9 % (11.5-14.5); Red Blood Cell (RBC) Count 4.43 mill/uL (4.70-6.10)
[2024-02-10 05:22] LABS: Anion Gap 19 mmol/L (10-20); BUN (Urea Nitrogen) 45 mg/dL (8.4-25.7); Calc. Creatinine Clearance 60 mL/min (70-130); Carbon Dioxide 24 mmol/L (23-31); Chloride 102 mmol/L (98-107); Estimated GFR 58; Glucose 112 mg/dL (80-115); Potassium 4.9 mmol/L (3.5-5.1); Sodium 140 mmol/L (136-145)
[2024-02-10 07:27] LABS: Band 22 % (5-11); Giant Platelets 0.9 % (0-5); Large Platelets 6.3 % (0-5); Lymphocytes 6 % (21-51); Metamyelocyte 2 % (0-0); Monocytes 11 % (0-10); Neutrophil 56 % (42-75); Platelet Adequacy Comment Platelets Normal; Polychromasia SLIGHT = 2-3 cells HPF (0-2); Reactive Lymphocytes 2 % (0-10); Target Cells SLIGHT = 2-5 cells HPF (0-1); Toxic Granulation SLIGHT
[2024-02-10] MEDS: Lactated Ringer's 1,000 ML IV SCH ×2 (08:49)
[2024-02-11 05:39] LABS: Hematocrit 37.5 % (42.0-52.0); Hemoglobin 12.6 g/dL (14.0-18.0); Mean Corpuscular HGB CONC 33.6 g/dL (32.0-36.0); Mean Corpuscular Hemoglobin 33.1 pg (27.0-31.0); Mean Corpuscular Volume 98.4 fL (78.0-98.0); Mean Platelet Volume 12.1 fL (7.4-10.4); Platelet Count 179 10x3/uL (130-400); RBC Distribution Width 15.7 % (11.5-14.5); Red Blood Cell (RBC) Count 3.81 mill/uL (4.70-6.10)
[2024-02-11 06:15] LABS: Band 20 % (5-11); Lymphocytes 4 % (21-51); Metamyelocyte 2 % (0-0); Monocytes 8 % (0-10); Myelocyte 1 % (0-0); Neutrophil 65 % (42-75); Platelet Adequacy Comment Platelets Normal; RBC Morphology Within Normal Limits; Reactive Lymphocytes 1 % (0-10); Smudge Cells 10.6 %
[2024-02-11 07:05] LABS: Anion Gap 16 mmol/L (10-20); BUN (Urea Nitrogen) 40 mg/dL (8.4-25.7); Calc. Creatinine Clearance 88 mL/min (70-130); Carbon Dioxide 24 mmol/L (23-31); Chloride 102 mmol/L (98-107); Estimated GFR 93; Glucose 86 mg/dL (80-115); Potassium 3.6 mmol/L (3.5-5.1); Sodium 138 mmol/L (136-145)
[2024-02-11] MEDS: Potassium Chloride 20 MEQ TAB PO SCH (10:44)
[2024-02-11 17:41] LABS: Hemoglobin 11.3 g/dL (14.0-18.0)
[2024-02-12 04:58] LABS: Hematocrit 32.2 % (42.0-52.0); Hemoglobin 10.8 g/dL (14.0-18.0); Mean Corpuscular HGB CONC 33.5 g/dL (32.0-36.0); Mean Corpuscular Hemoglobin 33.5 pg (27.0-31.0); Mean Platelet Volume 11.5 fL (7.4-10.4); Platelet Count 179 10x3/uL (130-400); Red Blood Cell (RBC) Count 3.22 mill/uL (4.70-6.10)
[2024-02-12 05:09] LABS: Anion Gap 15 mmol/L (10-20); BUN (Urea Nitrogen) 30 mg/dL (8.4-25.7); Calc. Creatinine Clearance 104 mL/min (70-130); Calcium 7.5 mg/dL (7.8-10.44); Carbon Dioxide 23 mmol/L (23-31); Chloride 104 mmol/L (98-107); Estimated GFR 100; Glucose 87 mg/dL (80-115); Potassium 3.5 mmol/L (3.5-5.1); Sodium 138 mmol/L (136-145)
[2024-02-12 05:23] LABS: Anisocytosis SLIGHT = 6-15 cells HPF (0-5); Band 14 % (5-11); Dohle Bodies SLIGHT; Lymphocytes 4 % (21-51); Macrocytosis SLIGHT = 6-15 cells HPF (0-5); Metamyelocyte 1 % (0-0); Monocytes 4 % (0-10); Myelocyte 1 % (0-0); Neutrophil 76 % (42-75); Platelet Adequacy Comment Platelets Normal; Polychromasia SLIGHT = 2-3 cells HPF (0-2); Promyelocytes 1 % (0-0); Toxic Granulation MODERATE
[2024-02-12 08:00] LABS: Albumin 2.1 g/dL (3.4-4.8); Magnesium 1.9 mg/dL (1.6-2.6); Phosphorus 2.8 mg/dL (2.3-4.7)
[2024-02-12] MEDS: Potassium Chloride 20 MEQ in Lactated Ringer's 1,000 ML IV SCH (08:24)
[2024-02-12] MEDS ORDERED: Magnesium 2 GM/50 ML(in water) 2 GM in Premix 1 BAG IVPB SCH (10:00)
[2024-02-12] MEDS ORDERED: MAGIC MOUTHWASH 10 ML UDCUP SSP PRN (10:14)
[2024-02-12] MEDS: Magnesium 2 GM/50 ML(in water) 2 GM in Premix 1 BAG IVPB SCH (10:25)
[2024-02-12] MEDS: Nystatin Powder 15 GM BOT TOP SCH (13:48)
[2024-02-13 04:35] LABS: Hematocrit 31.3 % (42.0-52.0); Hemoglobin 10.3 g/dL (14.0-18.0); Mean Corpuscular HGB CONC 32.9 g/dL (32.0-36.0); Mean Corpuscular Volume 100.3 fL (78.0-98.0); Mean Platelet Volume 11.5 fL (7.4-10.4); Platelet Count 169 10x3/uL (130-400); RBC Distribution Width 15.3 % (11.5-14.5); Red Blood Cell (RBC) Count 3.12 mill/uL (4.70-6.10)
[2024-02-13 04:43] LABS: Anion Gap 11 mmol/L (10-20); BUN (Urea Nitrogen) 21 mg/dL (8.4-25.7); Calc. Creatinine Clearance 117 mL/min (70-130); Calcium 7.6 mg/dL (7.8-10.44); Carbon Dioxide 20 mmol/L (23-31); Chloride 112 mmol/L (98-107); Estimated GFR 104; Glucose 86 mg/dL (80-115); Potassium 4.7 mmol/L (3.5-5.1); Sodium 138 mmol/L (136-145)
[2024-02-13 05:45] LABS: Anisocytosis SLIGHT = 6-15 cells HPF (0-5); Band 8 % (5-11); Dohle Bodies SLIGHT; Eosinophils 1 % (0-10); Lymphocytes 2 % (21-51); Macrocytosis SLIGHT = 6-15 cells HPF (0-5); Monocytes 2 % (0-10); Myelocyte 1 % (0-0); Neutrophil 86 % (42-75); Nucleated RBC (Manual Ct) 1 % (0); Platelet Adequacy Comment Platelets Normal; Polychromasia SLIGHT = 2-3 cells HPF (0-2); Toxic Granulation MODERATE
[2024-02-13] MEDS: Sodium Bicarbonate 150 MEQ in Sterile Water 1,000 ML IV SCH (06:41)
[2024-02-13] MEDS: Aluminum & Magnesium Hydroxide 60 ML, Lidocaine 2% Viscous Solution 30 ML, diphenhydrAM... SSP PRN (13:05)
[2024-02-14 05:08] LABS: Hematocrit 28.8 % (42.0-52.0); Hemoglobin 9.3 g/dL (14.0-18.0); Mean Corpuscular HGB CONC 32.3 g/dL (32.0-36.0); Mean Corpuscular Hemoglobin 34.2 pg (27.0-31.0); Mean Corpuscular Volume 105.9 fL (78.0-98.0); Mean Platelet Volume 11.7 fL (7.4-10.4); Platelet Count 150 10x3/uL (130-400); RBC Distribution Width 15.4 % (11.5-14.5); Red Blood Cell (RBC) Count 2.72 mill/uL (4.70-6.10)
[2024-02-14 05:19] LABS: Anion Gap 15 mmol/L (10-20); BUN (Urea Nitrogen) 15 mg/dL (8.4-25.7); Calc. Creatinine Clearance 119 mL/min (70-130); Calcium 7.3 mg/dL (7.8-10.44); Carbon Dioxide 17 mmol/L (23-31); Chloride 106 mmol/L (98-107); Estimated GFR 105; Glucose 59 mg/dL (80-115); Potassium 4.6 mmol/L (3.5-5.1); Sodium 133 mmol/L (136-145)
[2024-02-14 05:53] LABS: Anisocytosis SLIGHT = 6-15 cells HPF (0-5); Band 8 % (5-11); Dohle Bodies SLIGHT; Lymphocytes 6 % (21-51); Macrocytosis SLIGHT = 6-15 cells HPF (0-5); Metamyelocyte 1 % (0-0); Monocytes 3 % (0-10); Neutrophil 82 % (42-75); Nucleated RBC (Manual Ct) 1 % (0); Platelet Adequacy Comment Platelets Normal; Polychromasia SLIGHT = 2-3 cells HPF (0-2); Toxic Granulation MODERATE
[2024-02-14] MEDS: Sodium Bicarbonate Tab 325 MG TAB PO SCH (09:38)
[2024-02-14] MEDS: Potassium Chloride 20 MEQ TAB PO SCH (09:38)
[2024-02-14] MEDS: Nystatin 500,000 UNITS/5 ML UDCUP SSW SCH (12:28)
[2024-02-14] MEDS: Sodium Chloride 0.9% 1,000 ML IV SCH (12:28)
[2024-02-15] MEDS: Acetaminophen 650 MG/20.3 ML UDCUP PO PRN (02:01)
[2024-02-15 06:04] LABS: Hematocrit 26.4 % (42.0-52.0); Hemoglobin 8.9 g/dL (14.0-18.0); Mean Corpuscular HGB CONC 33.7 g/dL (32.0-36.0); Mean Corpuscular Hemoglobin 33.7 pg (27.0-31.0); Mean Platelet Volume 11.7 fL (7.4-10.4); Platelet Count 194 10x3/uL (130-400); Red Blood Cell (RBC) Count 2.64 mill/uL (4.70-6.10)
[2024-02-15 06:09] LABS: Albumin 1.7 g/dL (3.4-4.8); Anion Gap 13 mmol/L (10-20); BUN (Urea Nitrogen) 14 mg/dL (8.4-25.7); Calc. Creatinine Clearance 117 mL/min (70-130); Calcium 7.3 mg/dL (7.8-10.44); Carbon Dioxide 20 mmol/L (23-31); Chloride 105 mmol/L (98-107); Estimated GFR 104; Glucose 70 mg/dL (80-115); Phosphorus 2.5 mg/dL (2.3-4.7); Potassium 3.6 mmol/L (3.5-5.1); Sodium 134 mmol/L (136-145)
[2024-02-15 06:36] LABS: Band 8 % (5-11); Elliptocytes SLIGHT = 2-5 cells HPF (0-1); Hypochromia SLIGHT = 6-15 cells HPF (0-5); Lymphocytes 2 % (21-51); Macrocytosis SLIGHT = 6-15 cells HPF (0-5); Monocytes 8 % (0-10); Neutrophil 82 % (42-75); Nucleated RBC (Manual Ct) 1 % (0); Platelet Adequacy Comment Platelets Normal; Polychromasia SLIGHT = 2-3 cells HPF (0-2); Toxic Granulation MODERATE
[2024-02-15 09:33] LABS: Magnesium 1.7 mg/dL (1.6-2.6)
[2024-02-15] MEDS: Albumin 25% 25 GM (100 mL) BOT IVPB SCH ×2 (09:47→15:16)
[2024-02-15] MEDS: Magnesium 2 GM/50 ML(in water) 2 GM in Premix 1 BAG IVPB SCH (12:33)
[2024-02-15] MEDS: Potassium Chloride 20 MEQ TAB PO SCH (15:16)
[2024-02-16 04:59] LABS: Albumin 3.4 g/dL (3.4-4.8); Anion Gap 13 mmol/L (10-20); BUN (Urea Nitrogen) 11 mg/dL (8.4-25.7); BUN/Creatinine Ratio 16.18; Calc. Creatinine Clearance 121 mL/min (70-130); Calcium 8.1 mg/dL (7.8-10.44); Carbon Dioxide 19 mmol/L (23-31); Chloride 107 mmol/L (98-107); Estimated GFR 105; Glucose 61 mg/dL (80-115); Magnesium 2.2 mg/dL (1.6-2.6); Potassium 3.9 mmol/L (3.5-5.1); Sodium 135 mmol/L (136-145)
[2024-02-16 05:12] LABS: Hematocrit 23.2 % (42.0-52.0); Hemoglobin 7.7 g/dL (14.0-18.0); Mean Corpuscular HGB CONC 33.2 g/dL (32.0-36.0); Mean Corpuscular Hemoglobin 33.8 pg (27.0-31.0); Mean Corpuscular Volume 101.8 fL (78.0-98.0); Mean Platelet Volume 11.3 fL (7.4-10.4); Platelet Count 231 10x3/uL (130-400); RBC Distribution Width 15.1 % (11.5-14.5); Red Blood Cell (RBC) Count 2.28 mill/uL (4.70-6.10)
[2024-02-16 08:22] LABS: Band 15 % (5-11); Dohle Bodies SLIGHT; Large Platelets 3.9 % (0-5); Lymphocytes 8 % (21-51); Macrocytosis SLIGHT = 6-15 cells HPF (0-5); Monocytes 12 % (0-10); Neutrophil 66 % (42-75); Platelet Adequacy Comment Platelets Normal; Polychromasia SLIGHT = 2-3 cells HPF (0-2)
[2024-02-16] MEDS: Dextrose 50% Abboject 50 ML SYRINGE SLOW IVP SCH (10:13)
[2024-02-16] MEDS: PHOS-NAK 1 PKT PACK PO SCH (10:14)
[2024-02-16] MEDS: Sodium Bicarbonate Tab 325 MG TAB PO SCH (10:16)
[2024-02-16] MEDS ORDERED: MAGIC MOUTHWASH 10 ML UDCUP SSP PRN (17:05)
[2024-02-16] MEDS: Vancomycin HCl 125 MG Capsule PO SCH (22:02)
[2024-02-17] MEDS: Vancomycin HCl 125 MG Capsule PO SCH (00:30)
[2024-02-17 05:35] LABS: Hematocrit 29.7 % (42.0-52.0); Hemoglobin 9.6 g/dL (14.0-18.0); Mean Corpuscular HGB CONC 32.3 g/dL (32.0-36.0); Mean Corpuscular Hemoglobin 34.3 pg (27.0-31.0); Mean Corpuscular Volume 106.1 fL (78.0-98.0); Platelet Count 327 10x3/uL (130-400); RBC Distribution Width 15.7 % (11.5-14.5)
[2024-02-17 05:37] LABS: Albumin 3.3 g/dL (3.4-4.8); Anion Gap 16 mmol/L (10-20); BUN (Urea Nitrogen) 11 mg/dL (8.4-25.7); BUN/Creatinine Ratio 15.94; Calc. Creatinine Clearance 119 mL/min (70-130); Calcium 8.3 mg/dL (7.8-10.44); Carbon Dioxide 17 mmol/L (23-31); Chloride 109 mmol/L (98-107); Estimated GFR 105; Glucose 69 mg/dL (80-115); Phosphorus 2.1 mg/dL (2.3-4.7); Potassium 4.8 mmol/L (3.5-5.1); Sodium 137 mmol/L (136-145)
[2024-02-17 06:47] LABS: Anisocytosis SLIGHT = 6-15 cells HPF (0-5); Band 13 % (5-11); Burr Cells SLIGHT = 2-5 cells HPF (0-1); Lymphocytes 9 % (21-51); Macrocytosis SLIGHT = 6-15 cells HPF (0-5); Metamyelocyte 1 % (0-0); Monocytes 9 % (0-10); Myelocyte 2 % (0-0); Neutrophil 66 % (42-75); Ovalocytes SLIGHT = 2-5 cells HPF (0-1); Platelet Adequacy Comment Platelets Normal; Polychromasia SLIGHT = 2-3 cells HPF (0-2); Tear Drops SLIGHT = 2-5 cells HPF (0-1)
[2024-02-17] MEDS: Magnesium 2 GM/50 ML(in water) 2 GM in Premix 1 BAG IVPB SCH (08:42)
[2024-02-17] MEDS ORDERED: PROPOFOL 20 ML ONE (11:17)
[2024-02-17] MEDS ORDERED: Midazolam HCl 2 mg/2 ml Vial ONE (11:59)
[2024-02-17] MEDS ORDERED: Lidocaine 1% PF 5 ML VIAL ONE (12:03)
[2024-02-17] MEDS: Sucralfate 1 GM/10 ML UDCUP PO SCH (16:24)
[2024-02-17] MEDS: Acyclovir 200 mg Capsule PO SCH (16:24)
[2024-02-18 06:03] LABS: Hemoglobin 9.6 g/dL (14.0-18.0); Mean Corpuscular HGB CONC 33.1 g/dL (32.0-36.0); Mean Corpuscular Hemoglobin 33.2 pg (27.0-31.0); Mean Corpuscular Volume 100.3 fL (78.0-98.0); Mean Platelet Volume 10.6 fL (7.4-10.4); Platelet Count 413 10x3/uL (130-400); RBC Distribution Width 15.6 % (11.5-14.5); Red Blood Cell (RBC) Count 2.89 mill/uL (4.70-6.10)
[2024-02-18 07:04] LABS: Band 12 % (5-11); Eosinophils 1 % (0-10); Large Platelets 5.8 % (0-5); Lymphocytes 9 % (21-51); Monocytes 18 % (0-10); Neutrophil 58 % (42-75); Platelet Adequacy Comment Platelets Increased; Polychromasia SLIGHT = 2-3 cells HPF (0-2); Reactive Lymphocytes 1 % (0-10)
[2024-02-18 07:47] LABS: Albumin 3.1 g/dL (3.4-4.8); Anion Gap 12 mmol/L (10-20); BUN (Urea Nitrogen) 16 mg/dL (8.4-25.7); BUN/Creatinine Ratio 23.88; Calc. Creatinine Clearance 123 mL/min (70-130); Calcium 8.1 mg/dL (7.8-10.44); Carbon Dioxide 19 mmol/L (23-31); Chloride 109 mmol/L (98-107); Estimated GFR 106; Glucose 101 mg/dL (80-115); Magnesium 2.2 mg/dL (1.6-2.6); Phosphorus 2.1 mg/dL (2.3-4.7); Potassium 3.5 mmol/L (3.5-5.1); Sodium 136 mmol/L (136-145)
[2024-02-18] MEDS: Potassium Chloride 20 MEQ TAB PO SCH ×2 (09:40)
[2024-02-18] MEDS: PHOS-NAK 1 PKT PACK PO SCH (09:41)
[2024-02-19 05:15] LABS: Hematocrit 31.4 % (42.0-52.0); Mean Corpuscular HGB CONC 31.8 g/dL (32.0-36.0); Mean Corpuscular Hemoglobin 32.7 pg (27.0-31.0); Mean Corpuscular Volume 102.6 fL (78.0-98.0); Platelet Count 466 10x3/uL (130-400); RBC Distribution Width 15.8 % (11.5-14.5); Red Blood Cell (RBC) Count 3.06 mill/uL (4.70-6.10)
[2024-02-19 05:27] LABS: Albumin 3.1 g/dL (3.4-4.8); Anion Gap 11 mmol/L (10-20); BUN (Urea Nitrogen) 19 mg/dL (8.4-25.7); BUN/Creatinine Ratio 26.76; Calc. Creatinine Clearance 116 mL/min (70-130); Calcium 8.4 mg/dL (7.8-10.44); Carbon Dioxide 21 mmol/L (23-31); Chloride 111 mmol/L (98-107); Estimated GFR 104; Glucose 103 mg/dL (80-115); Phosphorus 2.2 mg/dL (2.3-4.7); Potassium 4.7 mmol/L (3.5-5.1); Sodium 138 mmol/L (136-145)
[2024-02-19 05:44] LABS: Eosinophils 1 % (0-10); Hypochromia SLIGHT = 6-15 cells HPF (0-5); Lymphocytes 15 % (21-51); Macrocytosis SLIGHT = 6-15 cells HPF (0-5); Monocytes 13 % (0-10); Neutrophil 69 % (42-75); Platelet Adequacy Comment Platelets Normal; Polychromasia SLIGHT = 2-3 cells HPF (0-2); Reactive Lymphocytes 1 % (0-10)
[2024-02-19] MEDS: Magnesium 2 GM/50 ML(in water) 2 GM in Premix 1 BAG IVPB SCH (08:23)
[2024-02-19] MEDS: Pantoprazole DR 40 MG TAB PO SCH (20:26)
[2024-02-20 05:46] LABS: #Basophils 0.05 10x3/uL (0.0-0.2); %Basophils 0.5 % (0.0-1.0); %Eosinophils 0.7 % (0.0-10.0); %Lymphocytes 12.1 % (21.0-51.0); %Monocytes 14.8 % (0.0-10.0); %Neutrophils 69.6 % (42.0-75.0); Hematocrit 30.3 % (42.0-52.0); Mean Corpuscular Hemoglobin 33.6 pg (27.0-31.0); Mean Corpuscular Volume 101.7 fL (78.0-98.0); Mean Platelet Volume 9.9 fL (7.4-10.4); Platelet Count 467 10x3/uL (130-400); RBC Distribution Width 15.8 % (11.5-14.5); Red Blood Cell (RBC) Count 2.98 mill/uL (4.70-6.10)
[2024-02-20 07:26] LABS: Albumin 2.9 g/dL (3.4-4.8); Anion Gap 11 mmol/L (10-20); BUN (Urea Nitrogen) 20 mg/dL (8.4-25.7); BUN/Creatinine Ratio 28.99; Calc. Creatinine Clearance 119 mL/min (70-130); Calcium 8.2 mg/dL (7.8-10.44); Carbon Dioxide 18 mmol/L (23-31); Chloride 110 mmol/L (98-107); Estimated GFR 105; Glucose 97 mg/dL (80-115); Phosphorus 2.5 mg/dL (2.3-4.7); Potassium 4.2 mmol/L (3.5-5.1); Sodium 135 mmol/L (136-145)
[2024-02-20] MEDS: Multivit, Therapeutic 1 TAB PO SCH (09:51)
[2024-02-20] MEDS: Folic Acid 1 MG TAB PO SCH (09:51)
[2024-02-21 05:31] LABS: Albumin 2.8 g/dL (3.4-4.8); Anion Gap 13 mmol/L (10-20); BUN (Urea Nitrogen) 19 mg/dL (8.4-25.7); BUN/Creatinine Ratio 27.14; Calc. Creatinine Clearance 117 mL/min (70-130); Calcium 8.4 mg/dL (7.8-10.44); Carbon Dioxide 18 mmol/L (23-31); Chloride 107 mmol/L (98-107); Estimated GFR 104; Glucose 95 mg/dL (80-115); Phosphorus 2.6 mg/dL (2.3-4.7); Potassium 4.3 mmol/L (3.5-5.1); Sodium 134 mmol/L (136-145)
[2024-02-23 05:11] LABS: Anion Gap 12 mmol/L (10-20); BUN (Urea Nitrogen) 19 mg/dL (8.4-25.7); Calc. Creatinine Clearance 101 mL/min (70-130); Calcium 8.8 mg/dL (7.8-10.44); Carbon Dioxide 20 mmol/L (23-31); Chloride 106 mmol/L (98-107); Estimated GFR 100; Glucose 96 mg/dL (80-115); Magnesium 1.8 mg/dL (1.6-2.6); Potassium 4.2 mmol/L (3.5-5.1); Sodium 134 mmol/L (136-145)
[2024-02-24 08:59] VITALS: BP 132/98; TEMP 97.6
== END 2024-02-24 17:10 | DRG 643 ==
LOC: MSONC 23:29
PROVIDERS: ADMIT Student in an Organized Health Care Education/Training Program; ATTEND Internal Medicine
PROC: 30233J1 Transfusion of Nonautologous Serum Albumin into Peripheral Vein, Percutaneous Approach (ICD-10-PCS; 2024-02-02)
PROC: 0DB58ZX Excision of Esophagus, Via Natural or Artificial Opening Endoscopic, Diagnostic (ICD-10-PCS; principal; 2024-02-17)
DX: E22.2 Syndrome of inappropriate secretion of antidiuretic hormone (principal); E43 Unspecified severe protein-calorie malnutrition; A04.72 Enterocolitis due to Clostridium difficile, not specified as recurrent; C20 Malignant neoplasm of rectum; K22.10 Ulcer of esophagus without bleeding; K50.00 Crohn's disease of small intestine without complications; N17.9 Acute kidney failure, unspecified; K56.600 Partial intestinal obstruction, unspecified as to cause; Z88.2 Allergy status to sulfonamides; I10 Essential (primary) hypertension; Z98.890 Other specified postprocedural states; Z82.49 Family history of ischemic heart disease and other diseases of the circulatory system; E87.6 Hypokalemia; G47.33 Obstructive sleep apnea (adult) (pediatric); F41.9 Anxiety disorder, unspecified; Z79.899 Other long term (current) drug therapy; F32.A Depression, unspecified; E86.0 Dehydration; E83.39 Other disorders of phosphorus metabolism; K12.0 Recurrent oral aphthae
CPT/HCPCS: 36415; 36416; 74018; 74177; 76770; 80048; 80053; 80069; 82040; 82274; 83630; 83735; 83930; 83935; 84100; 84145; 84300; 85025; 86141; 87324; 87449; 87507; 88305; 88312; 93005; 93010; 97139; A4217; J1650; J2250; J2272; J2405; J2704; J3475; J3480; J7030; J7050; J7120; J7999; P9047; Q0162; Q0163; Q9967

== ENCOUNTER 2024-04-01 10:10 | Outpatient (CLI) | payer BC ==
[2024-04-01 12:09] LABS: #Basophils 0.03 10x3/uL (0.0-0.2); %Basophils 0.4 % (0.0-1.0); %Eosinophils 0.7 % (0.0-10.0); %Lymphocytes 22.3 % (21.0-51.0); %Neutrophils 65.3 % (42.0-75.0); Hemoglobin 12.1 g/dL (14.0-18.0); Mean Corpuscular HGB CONC 33.6 g/dL (32.0-36.0); Mean Corpuscular Hemoglobin 35.9 pg (27.0-31.0); Mean Corpuscular Volume 106.8 fL (78.0-98.0); Mean Platelet Volume 9.8 fL (7.4-10.4); Platelet Count 304 10x3/uL (130-400); RBC Distribution Width 14.9 % (11.5-14.5); Red Blood Cell (RBC) Count 3.37 mill/uL (4.70-6.10)
[2024-04-01 12:26] LABS: Anion Gap 12 mmol/L (10-20); BUN (Urea Nitrogen) 13 mg/dL (8.4-25.7); Calc. Creatinine Clearance 0 mL/min (70-130); Calcium 8.7 mg/dL (7.8-10.44); Carbon Dioxide 18 mmol/L (23-31); Chloride 111 mmol/L (98-107); Estimated GFR 109; Glucose 106 mg/dL (80-115); Potassium 3.2 mmol/L (3.5-5.1); Sodium 138 mmol/L (136-145)
== END 2024-04-01 10:11 | disposition home or self-care (01) ==
LOC: LABBT 10:10
PROVIDERS: ATTEND Specialist
DX: Z01.818 Encounter for other preprocedural examination (principal); C20 Malignant neoplasm of rectum
CPT/HCPCS: 71046; 80048; 85025; 93005; 93010

== ENCOUNTER 2024-04-05 05:45 | Day surgery (SDC) | payer BC ==
[2024-04-01 10:48] VITALS: BMI 25.3
[2024-04-05] MEDS ORDERED: Acetaminophen 500 MG TAB ONE (06:06)
[2024-04-05] MEDS ORDERED: CEFAZOLIN 2 GM VIAL ONE (06:06)
[2024-04-05] MEDS ORDERED: Ketorolac Tromethamine 30 MG (1 mL) VIAL ONE (06:06)
[2024-04-05] MEDS ORDERED: fentaNYL 50 mcg/mL 1 mL Vial ONE (07:03)
[2024-04-05] MEDS ORDERED: PROPOFOL 20 ML ONE (07:03)
[2024-04-05] MEDS ORDERED: Lidocaine 1% PF 5 ML VIAL ONE (07:04)
[2024-04-05] MEDS ORDERED: ePHEDrine Sulfate 50 MG/10 ML VIAL ONE (07:52)
[2024-04-05] MEDS ORDERED: PHENYLEPHRINE-NS 100 MCG/ML 10 ML SYRINGE ONE (07:52)
[2024-04-05] MEDS ORDERED: Ondansetron PF 4 MG/2 ML Vial ONE (08:05)
== END 2024-04-05 11:00 | disposition home or self-care (01) ==
LOC: SDC 05:45
PROVIDERS: ATTEND Specialist
PROC: 0JH63WZ Insertion of Totally Implantable Vascular Access Device into Chest Subcutaneous Tissue and Fascia, Percutaneous Approach (ICD-10-PCS; principal; 2024-04-05)
DX: C20 Malignant neoplasm of rectum (principal); Z88.2 Allergy status to sulfonamides; Z88.8 Allergy status to other drugs, medicaments and biological substances
CPT/HCPCS: 71045; C1788; J1885; J2405; J2704; J3010

== ENCOUNTER 2024-12-07 08:45 | Outpatient (CLI) | payer BC | END 2024-12-07 08:46 | disposition home or self-care (01) | LOC: PET 08:45 | PROVIDERS: ATTEND Internal Medicine Hematology & Oncology | DX: C34.81 Malignant neoplasm of overlapping sites of right bronchus and lung (principal); C20 Malignant neoplasm of rectum; D72.828 Other elevated white blood cell count | CPT/HCPCS: 78815; A9552 ==

== ENCOUNTER 2024-12-19 12:51 | Day surgery (SDC) | payer BC ==
[2024-12-19] MEDS ORDERED: Sodium Bicarbonate 2.5 MEQ/5 ML SDV ONE (13:12)
[2024-12-19] MEDS ORDERED: Lidocaine 1% w/Epinephrine 1:100K 20 ML VIAL ONE (13:12)
== END 2024-12-19 14:00 | disposition home or self-care (01) ==
LOC: ULT 12:51
PROVIDERS: ATTEND Internal Medicine Hematology & Oncology
PROC: 07B23ZX Excision of Left Neck Lymphatic, Percutaneous Approach, Diagnostic (ICD-10-PCS; principal; 2024-12-19)
DX: C77.0 Secondary and unspecified malignant neoplasm of lymph nodes of head, face and neck (principal); C34.81 Malignant neoplasm of overlapping sites of right bronchus and lung; C20 Malignant neoplasm of rectum; D72.828 Other elevated white blood cell count; I10 Essential (primary) hypertension; F32.A Depression, unspecified; F17.200 Nicotine dependence, unspecified, uncomplicated; Z98.890 Other specified postprocedural states; Z88.2 Allergy status to sulfonamides; Z88.8 Allergy status to other drugs, medicaments and biological substances; Z79.899 Other long term (current) drug therapy
CPT/HCPCS: 38505; 76942; 88305; 88333; 88334; 88341; 88342

== ENCOUNTER 2025-02-14 08:36 | Outpatient (CLI) | payer BC ==
[2025-02-14 09:19] LABS: Estimated GFR - POC 99.0
== END 2025-02-14 08:37 | disposition home or self-care (01) ==
LOC: SCSMRI 08:36
PROVIDERS: ATTEND Internal Medicine Hematology & Oncology
DX: C34.81 Malignant neoplasm of overlapping sites of right bronchus and lung (principal); C20 Malignant neoplasm of rectum; D72.828 Other elevated white blood cell count; M48.061 Spinal stenosis, lumbar region without neurogenic claudication; M48.07 Spinal stenosis, lumbosacral region; C79.9 Secondary malignant neoplasm of unspecified site; M48.56XA Collapsed vertebra, not elsewhere classified, lumbar region, initial encounter for fracture
CPT/HCPCS: 36415; 72158; 82565